=== PATIENT | female | born 1945 | race Caucasian/White ===

== ENCOUNTER → 2021-01-30 08:35 | Outpatient (CLI) | payer MEDICARE, OTHER, SELFPAY ==
--- NOTE | 2021-01-30 | DI.MRI.S_ITS ---
PROCEDURE: MR SHOULDER RT WO CON INDICATIONS: pain in right arm TECHNIQUE: Noncontrast oblique coronal T2 fast spin echo with fat saturation, oblique sagittal T1 spin echo and T2 fast spin echo with fat saturation, axial T1 spin echo and T2 fast spin echo with fat saturation through the shoulder. COMPARISON: None. FINDINGS: Image quality: Excellent. Rotator cuff: There is full-thickness tearing of the entire supraspinatus and infraspinatus tendons, with medial retraction and atrophy of the supraspinatus and infraspinatus muscles. There is moderate-grade partial thickness intrasubstance and articular surface tearing of the superior, mid, and inferior subscapularis tendon at the humeral insertion site extending to the musculotendinous junction. Teres minor tendon is intact. Bones and bursae: No bone marrow contusions or fractures. Moderate acromioclavicular joint degeneration. The acromion demonstrates conventional anatomy, without an os acromiale. No pathologic subacromial-subdeltoid or subcoracoid bursal fluid is present. Capsule and soft tissues: Labrum is grossly intact. Full-thickness tearing of the biceps tendon. The rotator interval appears normal, without fibrosis. The coracohumeral ligament is normal in thickness. IMPRESSION: 1. Full-thickness tearing of the entire supraspinatus and infraspinatus tendons associated with atrophy of the supraspinatus and infraspinatus muscles. 2. Moderate grade tearing of the subscapularis tendon. 3. Acromioclavicular joint osteoarthritis. 4. Biceps tendon tearing. Dictated by: Hernan Knowles M.D. on 01/30/2021 at 13:38 Approved by: Hernan Knowles M.D. on 01/30/2021 at 13:40
--- NOTE | 2021-01-30 | DI.MRI.S_ITS ---
PROCEDURE: MR FOREARM RT WO CON INDICATIONS: pain in right arm TECHNIQUE: Noncontrast coronal and sagittal T1 spin echo and STIR; axial T1 spin echo and T2 fast spin echo with fat saturation through the right forearm COMPARISON: None. FINDINGS: Image quality: Excellent. Bones: There is no marrow edema. No acute fracture or dislocation. Mild osteoarthritic changes are noted in elbow and wrist joints. No significant joint effusion. Soft tissues: The scanned muscles demonstrate normal overall bulk and internal signal. Subcutaneous tissues appear normal as well. No soft tissue masses are present. IMPRESSION: 1. No forearm fracture or dislocation. No suspicious intraosseous lesion. Mild elbow and wrist joint osteoarthritis. 2. No gross forearm muscle or tendon signal abnormality is seen. Dictated by: Orlando Muñiz M.D. on 01/30/2021 at 11:43 Approved by: Orlando Muñiz M.D. on 01/30/2021 at 11:44
[2021-01-30 11:05] LABS: Add Manual Diff / Slide Review NO; Basophils Absolute Auto 0 /uL (0-100); Basophils Percent Auto 0.6 % (0-2); Eosinophils Absolute Auto 100 /uL (0-450); Hematocrit 42.8 % (36-46); Hemoglobin 14.2 g/dL (12.0-16.0); Lymphocytes Absolute Auto 1400 /uL (1100-4500); Lymphocytes Percent Auto 25.2 % (25-40); Mean Corpuscular HGB Conc 33.1 % (30-36); Mean Corpuscular Hemoglobin 30.5 PG (26-34); Monocytes Absolute Auto 400 /uL (0-900); Monocytes Percent Auto 6.8 % (3-14); Neutrophils Absolute Auto 3600 /uL (1500-7000); Neutrophils Percent Auto 65.4 % (50-75); Platelet Count 285 X10^3/uL (150-400); Red Blood Cell Count 4.65 X10^6/uL (4.0-5.2); Red Cell Distribution Width 13.2 % (11.6-14.8); White Blood Cell Count 5.6 X10^3/uL (4.5-11.0)
[2021-01-30 11:37] LABS: Alanine Aminotransferase 62 IU/L (<35); Albumin 4.2 g/dL (3.5-5.0); Albumin Globulin Ratio 1.7 (1.0-2.8); Alkaline Phosphatase 71 U/L (38-126); Aspartate Aminotransferase 39 IU/L (14-36); BUN Creatinine Ratio 24.5 (6-22); Bilirubin Total 0.6 mg/dL (0.2-1.3); Blood Urea Nitrogen 12 mg/dL (7-17); Carbon Dioxide 28 mmol/L (22-32); Chloride 104 mmol/L (98-107); Cholesterol 207 mg/dL (140-199); Estimated Glomerular Filt Rate > 60.0 mL/min (>60); Globulin 2.5 g/dL (1.7-4.1); Glucose 87 mg/dL (80-110); HDL Cholesterol 58 mg/dL (40-60); HEMOLYSIS < 15 (0-50); LDL Cholesterol Calculated 123 mg/dL (<100); Potassium 3.8 mmol/L (3.4-5.1); Sodium 139 mmol/L (137-145); Total Protein 6.7 g/dL (6.3-8.2); Triglycerides 128 mg/dL (35-150)
== END ==
PROVIDERS: Referring Provider Physician Assistant; Visit Provider Physician Assistant
DX: E78.2 Mixed hyperlipidemia (principal); M79.601 Pain in right arm
CPT/HCPCS: 36415; 73218; 73221; 80053; 80061; 85025